=== PATIENT | female | born 1980 | race Caucasian/White ===

== ENCOUNTER → 2017-04-16 | Outpatient (CLI) | payer OTHER ==
[~2017-04-16] MED LIST: FRN PO; INSU100I10 SC; INSUINJ8 SC; PRENTAB26 PO
== END | disposition home or self-care (01) ==
LOC: C.PATHSPEC 14:11
PROVIDERS: ATTEND Obstetrics & Gynecology
DX: N92.6 Irregular menstruation, unspecified (principal)

== ENCOUNTER → 2017-10-02 | Outpatient (CLI) | payer OTHER | END | disposition home or self-care (01) | LOC: C.PAPS 16:29 | PROVIDERS: ATTEND Obstetrics & Gynecology | DX: Z01.419 Encounter for gynecological examination (general) (routine) without abnormal findings (principal) ==

== ENCOUNTER 2018-01-10 01:36 | Emergency (ER) | payer OTHER ==
[~2018-01-10] VITALS: Ht 162.6 cm; Wt 130.7 kg
[2018-01-10 01:38] VITALS: TEMP 36.5; Ht 162.6 cm; Wt 130.7 kg
[2018-01-10] MEDS ORDERED: BCPILLS PO (02:49)
[2018-01-10] MEDS ORDERED: PRLSR20 PO (02:50)
--- NOTE | 2018-01-10 02:57 | EMERGENCY ROOM VISIT NOTE ---
History Report prepared by [employer]: Pablo Caro Under the Supervision of: Dr. Audra Tinsley D.O. First contact with patient: 01:45 Chief Complaint: CHEST PAIN Stated Complaint: CHEST PAIN Nursing Triage Summary: Sharp pain in chest and upper back with inspiration starting this afternoon, getting worse through night. Denies dyspnea. On control, does not smoke. Denies other symptoms. History of Present Illness The patient is a 37 year old female who presents to the Emergency Room with complaints of intermittent chest pain that began this afternoon. She states the pain is located in the middle of her chest and radiates to her back in between her shoulder blades. She states that the pain is only located between her shoulder blades when she is resting or lying down. Patient adds that deep breaths exacerbate the pain. Patient states that she called her doctor who referred her to the ER. Patient says she was worried about having a blood clot. She denies a family history of blood clots. She states she takes oral control. She denies associated symptoms of shortness of breath, leg pain, or leg swelling. Patient denies any recent long trips. She states that she works at [employer]. She states that she sits at work but gets up and moves around periodically. She denies doing anything strenuous in the past couple of days. Source of History: patient Onset: This afternoon Position: chest Timing: intermittent Modifying Factors (Worsening): breathing (Deep breaths) Associated Symptoms: No SOB Note: She denies leg pain or leg swelling. Review of Systems See HPI for pertinent positives & negatives. A total of 10 systems reviewed and were otherwise negative. Past Medical & Surgical Surgical Problems: (1) Previous section Family History FHx: cancer FHx: diabetes mellitus FHx: gallbladder disease High blood pressure Social History Smoking Status: Former Smoker Alcohol Use: none Marital Status: Occupation Status: employed Current/Historical Medications Scheduled Control Pills ( Control Pills), 1 TAB PO DAILY Omeprazole (Prilosec), 20 MG PO DAILY Allergies Coded Allergies: BEE STING (Verified Allergy, Unknown, 03/12/12) Penicillins (Verified Allergy, Unknown, HIVES, 03/12/12) Physical Exam Vital Signs Date Time Temp Pulse Resp B/P (MAP) Pulse Ox O2 Delivery O2 Flow Rate FiO2 01/10/18 03:48 79 28 95 01/10/18 03:33 78 28 94 01/10/18 03:31 127/83 01/10/18 03:18 81 23 95 01/10/18 03:09 144/86 01/10/18 03:03 77 21 97 01/10/18 02:48 80 21 95 01/10/18 02:43 78 27 95 01/10/18 02:31 135/96 01/10/18 02:28 83 19 93 01/10/18 02:13 77 23 97 01/10/18 02:01 124/82 01/10/18 01:58 78 21 96 01/10/18 01:53 74 20 136/86 97 Room Air 01/10/18 01:47 88 01/10/18 01:38 36.5 84 20 161/110 99 Room Air Physical Exam General: Patient is an obese female in no respiratory distress. HEENT: Head - normocephalic and atraumatic Pupils are equal, round, and reactive to light. Extraocular eye muscles are intact, and sclera are anicteric. Nose - moist nasal mucosa without discharge. Mouth - moist buccal mucosa. Oropharynx is nonerythematous and there is no tonsillar exudate or edema noted. Neck: Supple; no JVD, nuchal rigidity, cervical lymphadenopathy. Heart: Heart sounds distant secondary to body habitus. Regular rate and rhythm. There is a normal S1 and S2 with no murmurs, clicks, or gallops appreciated. Lungs: Clear to auscultation bilaterally with no wheezes, rales, or rhonchi. Abdomen: Soft, completely nontender, nondistended, with good bowel sounds. There are no palpable pulsatile masses or hepatosplenomegaly. There is no guarding, rigidity, or rebound noted. Extremities: No evidence of cyanosis, clubbing, or edema. There are easily palpable peripheral pulses. Skin: warm and dry with good turgor and no rashes. Medical Decision & Procedures ER Provider Diagnostic Interpretation: Radiology results were interpreted by me: Chest X-Ray: Borderline cardiomegaly, no evidence of pneumothorax, and no pulmonary infiltrate. The mediastinum was narrow. Laboratory Results 01/10/18 01:50 Red Blood Count 4.58, Mean Corpuscular Volume 85.8, Mean Corpuscular Hemoglobin 29.0, Mean Corpuscular Hemoglobin Concent 33.8, Mean Platelet Volume 9.5, Neutrophils (%) (Auto) 65.1, Lymphocytes (%) (Auto) 25.2, Monocytes (%) (Auto) 7.8, Eosinophils (%) (Auto) 1.2, Basophils (%) (Auto) 0.3, Neutrophils # (Auto) 6.70, Lymphocytes # (Auto) 2.59, Monocytes # (Auto) 0.80, Eosinophils # (Auto) 0.12, Basophils # (Auto) 0.03 01/10/18 01:50 Test 01/10/18 01:50 White Blood Count 10.28 K/uL (4.8-10.8) Red Blood Count 4.58 M/uL (4.2-5.4) Hemoglobin 13.3 g/dL (12.0-16.0) Hematocrit 39.3 % (37-47) Mean Corpuscular Volume 85.8 fL (80-100) Mean Corpuscular Hemoglobin 29.0 pg (25-34) Mean Corpuscular Hemoglobin Concent 33.8 g/dl (32-36) Platelet Count 354 K/uL (130-400) Mean Platelet Volume 9.5 fL (7.4-10.4) Neutrophils (%) (Auto) 65.1 % Lymphocytes (%) (Auto) 25.2 % Monocytes (%) (Auto) 7.8 % Eosinophils (%) (Auto) 1.2 % Basophils (%) (Auto) 0.3 % Neutrophils # (Auto) 6.70 K/uL (1.4-6.5) Lymphocytes # (Auto) 2.59 K/uL (1.2-3.4) Monocytes # (Auto) 0.80 K/uL (0.11-0.59) Eosinophils # (Auto) 0.12 K/uL (0-0.5) Basophils # (Auto) 0.03 K/uL (0-0.2) RDW Standard Deviation 42.3 fL (36.4-46.3) RDW Coefficient of Variation 13.5 % (11.5-14.5) Immature Granulocyte % (Auto) 0.4 % Immature Granulocyte # (Auto) 0.04 K/uL (0.00-0.02) D-Dimer 410 ug/L FEU (0-500) Anion Gap 8.0 mmol/L (3-11) Est Creatinine Clear Calc Drug Dose 119.9 ml/min Estimated GFR () 98.7 Estimated GFR (Non- 85.1 BUN/Creatinine Ratio 14.2 (10-20) Calcium Level 8.8 mg/dl (8.5-10.1) Troponin I < 0.015 ng/ml (0-0.045) Laboratory results per my review. ECG Per My Interpretation Indication: chest pain Rate (beats per minute): 74 Rhythm: normal sinus Findings: no acute ischemic change, no ectopy ED Course 0210: Past medical records reviewed. The patient was evaluated in room B4B. A complete history and physical exam was performed. A 12-lead EKG was obtained as described above. An IV lock was initiated and labs were drawn as above. The patient had a chest x-ray as described above. 0240: Patient's electrocardiogram was interpreted by me. 0335: Upon reevaluation, the patient is resting comfortably. I informed her to follow up with PCP about the cardiomegaly. I discussed findings and results with her. She verbalized agreement of the treatment plan. She was discharged home. Medical Decision The patient is a 37 year old female who presents to the ED with chest pain. Differential diagnosis includes musculoskeletal strain, PE, costochondritis, aortic dissection, pleurisy, and cardiac ischemia. Lab results show normal white count, stable H&H, normal D Dimer, normal troponin , normal renal function, and glucose = 109. This is a 37-year-old female patient presents to the emergency department with some discomfort in her chest and upper back. This pain was not reproducible. Patient was concerned that she may have a PE. However, the patient has normal oxygen saturations and heart rate. She has absolutely no shortness of breath and a negative d-dimer. My suspicion for PE was fairly low. There was also no evidence of aortic dissection. The patient declined wanting anything for pain. She is being discharged home and will follow up with her PCP if the symptoms persist. Medication Reconcilliation Current Medication List: was personally reviewed by me Blood Pressure Screening Patient's blood pressure: Normal blood pressure Blood pressure disposition: Did not require urgent referral Impression Primary Impression: Atypical chest pain Scribe Attestation The scribe's documentation has been prepared under my direction and personally reviewed by me in its entirety. I confirm that the note above accurately reflects all work, treatment, procedures, and medical decision making performed by me. Departure Information Dispostion Home / Self-Care Referrals Arnaldo Robins D.O. (PCP) Forms Call Back Authorization, HOME CARE DOCUMENTATION FORM, IMPORTANT VISIT INFORMATION Patient Instructions ED Chest Pain Atypical Unkn Cause, My [facility] Additional Instructions Rest. May use tylenol or motrin for pain in the chest or back. Return to the ER if you have worsening chest pain or back pain or you develop additional symptoms such as nausea/sweating or shortness of breath
[2018-01-10 03:03] LABS: BASO % 0.3 %; BASO ABS # 0.03 K/uL (0-0.2); EOS % 1.2 %; EOS ABS # 0.12 K/uL (0-0.5); HEMATOCRIT 39.3 % (37-47); HEMOGLOBIN 13.3 g/dL (12.0-16.0); IG# 0.04 K/uL (0.00-0.02); LYMPH % 25.2 %; LYMPH ABS # 2.59 K/uL (1.2-3.4); MEAN CELL VOLUME 85.8 fL (80-100); MEAN CORPUSCULAR HGB CONC 33.8 g/dl (32-36); MEAN PLATELET VOLUME 9.5 fL (7.4-10.4); MONO % 7.8 %; NEUT % 65.1 %; PLATELET COUNT 354 K/uL (130-400); RED CELL DISTRIBUTION WIDTH CV 13.5 % (11.5-14.5); RED CELL DISTRIBUTION WIDTH SD 42.3 fL (36.4-46.3); WHITE BLOOD COUNT 10.28 K/uL (4.8-10.8)
[2018-01-10 03:20] LABS: BLOOD UREA NITROGEN 12 mg/dl (7-18); CALCIUM 8.8 mg/dl (8.5-10.1); CARBON DIOXIDE 26 mmol/L (21-32); CREATININE 0.88 mg/dl (0.60-1.20); GLUCOSE 109 mg/dl (70-99); POTASSIUM 3.7 mmol/L (3.5-5.1); SODIUM 139 mmol/L (136-145)
[2018-01-10 03:31] VITALS: BP 127/83
[2018-01-10 03:48] VITALS: PULSE 79; O2SAT 95
--- NOTE | 2018-01-10 08:22 | DIAGNOSTIC IMAGING REPORT ---
CHEST 2 VIEWS ROUTINE HISTORY: Chest and back pain. COMPARISON: Chest CT 08/24/2007. FINDINGS: There are low lung volumes. No focal lung consolidations to suggest pneumonia. No evidence for pulmonary edema. No pleural effusions. No pneumothorax. The cardiac silhouette is mildly enlarged. IMPRESSION: 1. No focal lung consolidations. 2. Mild enlargement of the cardiac silhouette. However, this may be accentuated by the low lung volumes. Electronically signed by: Davon Izquierdo M.D. 01/10/2018 8:21 AM Dictated Date/Time: 01/10/2018 8:19 AM
== END 2018-01-10 03:56 | disposition home or self-care (01) ==
LOC: C.EDB 01:38
DX: R07.89 Other chest pain (principal); Z87.891 Personal history of nicotine dependence; Z98.891 History of uterine scar from previous surgery; Z83.3 Family history of diabetes mellitus